=== PATIENT | male | born 1980 | race Caucasian/White ===

== ENCOUNTER 2016-08-13 17:42 | Inpatient (IN) | payer OTHER ==
[2016-08-13] MEDS ORDERED: TORADOL IV ONE (18:04)
[2016-08-13] MEDS ORDERED: NACL 0.9% 1000 ML 1,000 ML IV ONE (18:04)
[2016-08-13] MEDS ORDERED: ZOFRAN IV ONE (18:04)
[2016-08-13] MEDS ORDERED: DILAUDID IV ONE (18:16)
[2016-08-13 18:23] LABS: Basophils % (Auto) 0.5 % (0.0-1.8); Eosinophils % (Auto) 0.6 % (0.0-4.3); Hematocrit 44.1 % (35.5-45.6); Hemoglobin 14.9 gm/dl (11.8-15.2); Mean Corpuscular HGB Conc 34 % (32-34); Mean Corpuscular Hemoglobin 30 pg (28-32); Mean Corpuscular Volume 87 fl (84-94); Platelet Count 222 K/mm3 (140-440); Red Blood Count 5.07 M/mm3 (3.65-5.03); Red Cell Distribution Width 13.9 % (13.2-15.2); White Blood Count 8.2 K/mm3 (4.5-11.0)
[2016-08-13 18:37] LABS: Alanine Aminotransferase 41 units/L (7-56); Albumin 4.4 g/dL (3.9-5); Albumin/Globulin Ratio 1.5 %; Alkaline Phosphatase 80 units/L (35-129); Anion Gap 22 mmol/L; BUN/Creatinine Ratio 11.11; Blood Urea Nitrogen 10 mg/dL (9-20); Calcium 9.5 mg/dL (8.4-10.2); Carbon Dioxide 23 mmol/L (22-30); Chloride 98.8 mmol/L (98-107); Glucose 102 mg/dL (75-100); Lipase 23 units/L (13-60); Potassium 3.9 mmol/L (3.6-5.0); Sodium 140 mmol/L (137-145); Total Protein 7.4 g/dL (6.3-8.2)
[2016-08-13 18:46] LABS: Bilirubin,Urine NEG (Negative); Blood,Urine LG (Negative); Ketones,Urine NEG (Negative); Leukocyte Esterase,Urine NEG (Negative); Mucus,Urine 1+ /HPF; Nitrite,Urine NEG (Negative); Protein,Urine <15 mg/dL mg/dL (Negative); Urobilinogen,Urine < 2.0 mg/dL (<2.0)
--- NOTE | 2016-08-13 19:13 | Emergency Department Report ---
ED Abdominal Pain HPI - General Chief Complaint: Abdominal Pain Stated Complaint: ABD PAIN Time Seen by Provider: 08/13/16 18:10 Source: patient Mode of arrival: Ambulatory Limitations: No Limitations - History of Present Illness MD Complaint: flank pain (right side) -: Sudden Radiation: suprapubic Severity: severe Severity scale (0 -10): 9 Quality: stabbing, sharp Consistency: colicky Improves With: nothing Worsens With: nothing Associated Symptoms: nausea. denies: vomiting, diarrhea, fever, chills, constipation, dysuria, hematemesis, hematochezia, melena, hematuria, anorexia, syncope - Related Data Previous Rx's Medication Instructions Recorded Last Taken Type Ketorolac [Toradol] 10 mg PO BID #20 tablet 08/13/16 Unknown Rx Allergies Allergy/AdvReac Type Severity Reaction Status Date / Time No Known Allergies Allergy Unverified 08/13/16 17:50 ED Review of Systems ROS: Stated complaint: ABD PAIN Other details as noted in HPI Comment: All other systems reviewed and negative ED Past Medical Hx - Past Medical History Previous Medical History?: No - Surgical History Past Surgical History?: No - Social History Smoking Status: Never Smoker Substance Use Type: Alcohol, Non Opiate Pain - Medications Home Medications: Home Medications Medication Instructions Recorded Confirmed Last Taken Type Ketorolac [Toradol] 10 mg PO BID #20 tablet 08/13/16 Unknown Rx ED Physical Exam - General Limitations: No Limitations General appearance: alert, in no apparent distress - Head Head exam: Present: atraumatic, normocephalic - Eye Eye exam: Present: normal appearance - ENT ENT exam: Present: mucous membranes moist - Neck Neck exam: Present: normal inspection - Respiratory Respiratory exam: Present: normal lung sounds bilaterally. Absent: respiratory distress - Cardiovascular Cardiovascular Exam: Present: regular rate, normal rhythm. Absent: systolic murmur, diastolic murmur, rubs, gallop - GI/Abdominal GI/Abdominal exam: Present: soft, normal bowel sounds. Absent: distended, tenderness, guarding, rebound - Rectal Rectal exam: Present: deferred - Extremities Exam Extremities exam: Present: normal inspection - Back Exam Back exam: Present: normal inspection, CVA tenderness (R) - Neurological Exam Neurological exam: Present: alert, oriented X3 - Psychiatric Psychiatric exam: Present: normal affect, normal mood - Skin Skin exam: Present: warm, dry, intact, normal color. Absent: rash ED Course Vital Signs 08/13/16 08/13/16 08/13/16 17:50 18:19 18:22 Temperature 97.9 F Pulse Rate 81 Respiratory 22 22 22 Rate Blood Pressure 159/121 O2 Sat by Pulse 100 Oximetry 08/13/16 18:33 Temperature Pulse Rate Respiratory 22 Rate Blood Pressure O2 Sat by Pulse 100 Oximetry ED Medical Decision Making - Lab Data Result diagrams: 08/13/16 17:56 08/13/16 18:00 Critical care attestation.: If time is entered above; I have spent that time in minutes in the direct care of this critically ill patient, excluding procedure time. ED Disposition Clinical Impression: Kidney stone on right side Disposition: DISCHARGED TO HOME OR SELFCARE Is pt being admited?: No Does the pt Need Aspirin: No Condition: Good Instructions: Kidney Stones (ED), How to Strain Your Urine (ED), Renal Colic ( ED) Prescriptions: Ketorolac [Toradol] 10 mg PO BID #20 tablet Referrals: PRIMARY CARE, [Primary Care Provider] - 3-5 Days Time of Disposition: 19:13 Print Language: ESTONIAN
--- NOTE | 2016-08-13 19:54 | Cat Scan Report ---
FINAL REPORT PROCEDURE: CT ABDOMEN PELVIS WO CON TECHNIQUE: Computerized axial tomography of the abdomen and pelvis was performed without intravenous contrast. This study is performed without intravascular contrast material and its sensitivity for abdominal and pelvic pathology, including neoplasms, inflammation, abscess, free fluid, thrombosis, arterial dissection and infarction, is reduced compared with a contrast enhanced study. HISTORY: severe right lower quad abd. pain COMPARISON: No prior studies are available for comparison. FINDINGS: Lower Lung bojorquez: Small amount of dependent atelectasis visualized. Upper Abdomen: There is subtle decreased density seen along the right side of the falciform ligament which is a common area for focal fatty infiltration. The liver is otherwise unremarkable. The gallbladder, the adrenal glands, the pancreas and spleen are unremarkable. Kidneys, Ureters and Urinary bladder: There is mild right-sided hydronephrosis secondary to a calculus in the distal right ureter adjacent to the urinary bladder measuring 6.3 x 2.2 centimeter. No other ureteral calculi are seen on the right or left. No renal calculi are seen on the right or left. No renal masses are identified. Urinary bladder showed no focal abnormality. Retroperitoneum: Abdominal aorta appears normal. No aneurysm is visualized. Nonspecific subcentimeter lymph nodes are seen in the retroperitoneum. No pathologically enlarged lymph nodes are identified. Bowel: No abnormalities are seen. No evidence of bowel obstruction ascites or free intraperitoneal gas. Normal-appearing appendix is seen in the right lower quadrant. No acute bony abnormalities are identified. Other: None IMPRESSION: Mild right-sided hydronephrosis secondary to a calculus in the distal right ureter. No other renal or ureteral calculi are seen. Small area of focal fatty infiltrates are suspected along the right side of the falciform ligament.. No other abnormalities are seen.
[2016-08-13] MEDS ORDERED: ZOFRAN IV PRN (23:21)
[2016-08-13] MEDS ORDERED: RESTORIL PO PRN (23:22)
[2016-08-14] MEDS ORDERED: TYLENOL PO PRN ×2 (01:46→15:56)
--- NOTE | 2016-08-14 05:19 | History and Physical Report ---
CHIEF COMPLAINT: Right flank pain. HISTORY OF PRESENT ILLNESS: The patient is a 36-year-old male who started having right flank pain a day prior to presentation. The patient admitted to having nausea, but no vomiting. There was also no history of fever or chills and no history of shortness of breath or chest pain. The pain radiates from the right flank down the right inguinal area. There is no history of dysuria, hematuria or burning micturition or frequent urination. The patient presented to the Emergency Room. PAST MEDICAL HISTORY: Unremarkable. PAST SURGICAL HISTORY: Unremarkable. FAMILY HISTORY: Noncontributory. SOCIAL HISTORY: The patient does not smoke, drinks alcohol and does not use illicit drugs. MEDICATIONS: The patient is on Toradol by mouth 10 mg twice daily as needed for pain. ALLERGIES: There are no known drug allergies. REVIEW OF SYSTEMS: CONSTITUTIONAL: There is no fever, no chills, no diaphoresis. HEENT: There is no headache or sore throat. CARDIOVASCULAR: There is no chest pain or orthopnea. RESPIRATORY: There is no shortness of breath or cough. GASTROINTESTINAL: There is nausea, but no vomiting, no abdominal pain, diarrhea or constipation. NEUROLOGICAL: There is no numbness, no dizziness, no altered mental status. MUSCULOSKELETAL: There is no joint pain or swelling. DERMATOLOGICAL: There is no skin rash or itching. GENITOURINARY: Shows flank pain, but no dysuria or hematuria. Rest of system review is normal. PHYSICAL EXAMINATION: GENERAL: At the time of exam, the patient was found to be alert, oriented x 3 and in mild distress due to pain in the right flank. VITAL SIGNS: Temperature was 97.9, pulse of 69, respirations 18, blood pressure 129/84, O2 sat of 100% on room air. HEENT: Showed pupils to be equal, round, reactive to light and accommodating. Extraocular muscles are intact. NECK: Supple with no JVD or carotid bruit. CARDIOVASCULAR : Show first and second heart sounds with no gallops or murmur. RESPIRATORY: Showed good air entry on both sides of the lung with no abnormal breath sounds. GASTROINTESTINAL: Showed abdomen to be full, soft, nontender with no organomegaly or rigidity. NEUROLOGIC: Showed no focal deficit. MUSCULOSKELETAL: Showed no joint swelling or tenderness. DERMATOLOGICAL SYSTEM: Showed no skin rash. GENITOURINARY: Showing right costovertebral angle tenderness. PERTINENT LAB AND IMAGING STUDIES: The patient had a CT of the abdomen and pelvis done that shows mild right-sided hydronephrosis believed to be secondary to a calculus in the distal right ureter adjacent to the urinary bladder measuring 6.3 x 2.2 mm and in the retroperitoneum abdominal aorta appears normal. No aneurysm is visualized, but there is finding of nonspecific subcentimeter lymph nodes. No pathologically enlarged lymph nodes were identified. DIAGNOSIS: Right ureteral calculus. PLAN: The patient will be admitted to medical floor. He will be on IV normal saline at 150 mL an hour. The patient will be on IV Dilaudid 1 mg every 4 hours as needed for pain and will be on IV Zofran 4 mg every 6 hours for nausea and vomiting and temazepam 15 mg at bedtime. Lab tests shows urine with elevated urine WBC, negative leukocytes and negative nitrites. The patient's chemistry was unremarkable with CBC unremarkable as well. The patient will also be on IV Levaquin 750 mg daily and will have Urology consult with Dr. Alexander today, 08/14/2016. The patient's home medications will be reconciled and started accordingly. The patient will also be on Tylenol 650 mg by mouth every 4 hours for fever and headache. JOB# [id number] [facility] MARTHAD
--- NOTE | 2016-08-14 06:58 | Admit Criteria Form ---
Admission Criteria Documentation: ABDOMINAL PAIN Clinical Indications for Admission to Inpatient Care (Place 'X' for any and all applicable criteria): Admission is indicated for ANY ONE of the following(1)(2)(3)(4)(5): [X ]I. Inpatient admission required rather than observation care (Also use Abdominal Pain: Observation Care, as appropriate) because of ANY ONE of the following: [ ]a) Severe pain requiring acute inpatient management [ X]b) Identification of etiology/finding that requires inpatient care (eg, aortic dissection, free air) [ ]c) Absent bowel sounds with complete ileus(6) [ ]d) Suspected toxic megacolon [ ]e) Severe electrolyte abnormalities requiring inpatient care [ ]f) High fever or infection requiring inpatient admission as indicated by ANY ONE of following(7)(8): [ ] i) Appropriate outpatient or observational care antimicrobial treatment unavailable, not effective, or not feasible [ ] ii) Documented bacteremia [ ] iii) Temperature > 104.9 degrees F (oral) [ ] iv) T >103.1 F (oral) or < 96.8 F(rectal) that does not respond to all emergency treatment measures [ ]g) Signs of intestinal obstruction [B] [ ]h) Hemodynamic instability [ ]i) IV fluid to replace significant ongoing losses (greater than 3 L/m2 per day) (12)(13) [ ]j) Percutaneous or open drainage (eg, abscess, biliary tract ) procedures [ ]k) Parenteral nutrition regimen that must be implemented on inpatient basis [ ]l) Other condition,treatment or monitoring requiring inpatient admission. [ ]II. Peritoneal signs present [ ]III. Surgery needed that cannot be performed on an ambulatory basis. [ ]IV. Evaluation requires patient to not eat or drink for extended period ( eg, more than 24 hours). [ ]V. Contraindications and/or Inappropriate clinical situations for Observational Care in patients with abdominal pain, when ANY ONE of the following is required: [ ]a) Thorough evaluation is required to prevent catastrophic events due to delays in diagnosing (e.g.Mesenteric ischemia) 1,3 [ ]b) Patient with severe pathology or with chronic symptoms unlikely to improve in the ED stay (3) [ ]. General contraindications and/or Inappropriate clinical situations for Observational Care in patients with abdominal pain, when ANY ONE of the following is required: [ ]a) Prediction of prolongation of LOS based on ANY ONE of the following may be considered as a contraindication for observational care 2, 3, 4, 5, 6, 7, 8, 9, 10, 11 [ ]i) Age > 65 yrs. [ ]ii) Patient arriving by ambulance [ ]iii) Patient with high acuity [ ]iv) Patient requiring vital sign monitoring [ ]v) Patient on IV medication [ ]b) Systolic blood pressures 180mmHg 3,12 [ ]c) Patient with altered mental status including delirium and other alteration of consciousness, (3) [ ]d) Patient whose discharge disposition will be to a care home home or rehabilitation home should not be managed in Emergency Department Observation Unit. CMS rule requires 3 days hospital stay before such placement.3,13 [ ]e) Patient with failure to thrive due to broad array of etiologies 3,16,17 [ ]f) Inability to ambulate 3,14 Extended stay beyond goal length of stay may be needed for(2)(3): [ ]a) Persistent abdominal pain with suspected intra-abdominal process [ ]b) Diagnosed condition requiring continued stay (e.g., pancreatitis, complicated diverticulitis) [ ]c) Surgery (e.g., colectomy) The original [facility] content created by [employer] has been revised. The portions of the content which have been revised are identified through the use of italic text or in bold, and [facility] has neither reviewed nor approved the modified material.All other unmodified content is copyright [facility] Please see references footnoted in the original [facility] edition 2016 Admission Criteria Met: Yes
--- NOTE | 2016-08-14 07:55 | Progress Note ---
Assessment and Plan Assessment and plan: --Right ureteric stone IV fluids, pain medications, urology consultation Discussed the case with Dr. Alexander and requested a consult --Obstructive uropathy/hydronephrosis Secondary to ureteric stone, possible urologic intervention, empiric antibiotics --DVT prophylaxis with Lovenox Closely monitor the patient and adjust management as needed Follow Gu evaluation recommendations Disposition; possible discharge in 1-2 days if stable History Interval history: Patient seen and evaluated medical records reviewed Admitted with flank pain, large ureteric stone with hydronephrosis Complaints of intermittent flank pain Denies any nausea vomiting Alert awake oriented 3 not in acute distress Vital signs reviewed stable Hospitalist Physical - Constitutional Vitals: Temp Pulse Resp BP Pulse Ox 97.9 F 58 L 16 121/80 97 08/14/16 00:00 08/14/16 00:00 08/14/16 00:00 08/14/16 00:00 08/14/16 00:00 General appearance: Present: no acute distress, well-nourished - EENT Eyes: Present: PERRL, EOM intact - Neck Neck: Present: supple, normal ROM - Respiratory Respiratory effort: normal Respiratory: negative: rales, rhonchi, wheezing - Cardiovascular Rhythm: regular Heart Sounds: Present: S1 & S2 - Extremities Extremities: no ischemia, pulses intact, pulses symmetrical Peripheral Pulses: within normal limits - Abdominal General gastrointestinal: soft, non-tender, non-distended, normal bowel sounds - Integumentary Integumentary: Present: clear, warm - Psychiatric Psychiatric: appropriate mood/affect, cooperative - Neurologic Neurologic: CNII-XII intact, moves all extremities Results - Labs CBC & Chem 7: 08/13/16 17:56 08/13/16 18:00 Labs: Laboratory Last Values WBC 8.2 K/mm3 (4.5-11.0) 08/13/16 17:56 RBC 5.07 M/mm3 (3.65-5.03) H 08/13/16 17:56 Hgb 14.9 gm/dl (11.8-15.2) 08/13/16 17:56 Hct 44.1 % (35.5-45.6) 08/13/16 17:56 MCV 87 fl (84-94) 08/13/16 17:56 MCH 30 pg (28-32) 08/13/16 17:56 MCHC 34 % (32-34) 08/13/16 17:56 RDW 13.9 % (13.2-15.2) 08/13/16 17:56 Plt Count 222 K/mm3 (140-440) 08/13/16 17:56 Lymph % (Auto) 29.8 % (13.4-35.0) 08/13/16 17:56 [place] % (Auto) 6.4 % (0.0-7.3) 08/13/16 17:56 Eos % (Auto) 0.6 % (0.0-4.3) 08/13/16 17:56 Baso % (Auto) 0.5 % (0.0-1.8) 08/13/16 17:56 Lymph # 2.5 K/mm3 (1.2-5.4) 08/13/16 17:56 [place] # 0.5 K/mm3 (0.0-0.8) 08/13/16 17:56 Eos # 0.1 K/mm3 (0.0-0.4) 08/13/16 17:56 Baso # 0.0 K/mm3 (0.0-0.1) 08/13/16 17:56 Seg Neutrophils % 62.7 % (40.0-70.0) 08/13/16 17:56 Seg Neutrophils # 5.1 K/mm3 (1.8-7.7) 08/13/16 17:56 Sodium 140 mmol/L (137-145) 08/13/16 18:00 Potassium 3.9 mmol/L (3.6-5.0) 08/13/16 18:00 Chloride 98.8 mmol/L (98-107) 08/13/16 18:00 Carbon Dioxide 23 mmol/L (22-30) 08/13/16 18:00 Anion Gap 22 mmol/L 08/13/16 18:00 BUN 10 mg/dL (9-20) 08/13/16 18:00 Creatinine 0.9 mg/dL (0.8-1.5) 08/13/16 18:00 Estimated GFR > 60 ml/min 08/13/16 18:00 BUN/Creatinine Ratio 11.11 % 08/13/16 18:00 Glucose 102 mg/dL (75-100) H 08/13/16 18:00 Calcium 9.5 mg/dL (8.4-10.2) 08/13/16 18:00 Total Bilirubin 0.30 mg/dL (0.1-1.2) 08/13/16 18:00 AST 25 units/L (5-40) 08/13/16 18:00 ALT 41 units/L (7-56) 08/13/16 18:00 Alkaline Phosphatase 80 units/L (35-129) 08/13/16 18:00 Total Protein 7.4 g/dL (6.3-8.2) 08/13/16 18:00 Albumin 4.4 g/dL (3.9-5) 08/13/16 18:00 Albumin/Globulin Ratio 1.5 % 08/13/16 18:00 Lipase 23 units/L (13-60) 08/13/16 18:00 Urine Color Yellow (Yellow) 08/13/16 18:08 Urine Turbidity Clear (Clear) 08/13/16 18:08 Urine pH 6.0 (5.0-7.0) 08/13/16 18:08 Ur Specific Bureau 1.017 (1.003-1.030) 08/13/16 18:08 Urine Protein <15 mg/dl mg/dL (Negative) 08/13/16 18:08 Urine Glucose (UA) Neg mg/dL (Negative) 08/13/16 18:08 Urine Ketones Neg mg/dL (Negative) 08/13/16 18:08 Urine Blood Lg (Negative) 08/13/16 18:08 Urine Nitrite Neg (Negative) 08/13/16 18:08 Urine Bilirubin Neg (Negative) 08/13/16 18:08 Urine Urobilinogen < 2.0 mg/dL (<2.0) 08/13/16 18:08 Ur Leukocyte Esterase Neg (Negative) 08/13/16 18:08 Urine WBC (Auto) 9.0 /HPF (0.0-6.0) H 08/13/16 18:08 Urine RBC (Auto) 61.0 /HPF (0.0-6.0) 08/13/16 18:08 Urine Mucus 1+ /HPF 08/13/16 18:08
--- NOTE | 2016-08-14 09:21 | Consultation ---
History of Present Illness - Reason for Consult Consult date: 08/14/16 - History of Present Illness rt flank pain ct rt hydro with stone Medications and Allergies Allergies Allergy/AdvReac Type Severity Reaction Status Date / Time No Known Allergies Allergy Verified 08/13/16 23:24 Home Medications Medication Instructions Recorded Confirmed Last Taken Type Acetaminophen [Acetaminophen TAB] 325 mg PO PRN PRN 08/13/16 08/13/16 Unknown History Ketorolac [Toradol] 10 mg PO BID #20 tablet 08/13/16 Unknown Rx Active Meds: Active Medications Acetaminophen (Tylenol) 650 mg PO Q4H PRN PRN Reason: For Pain/Fever/Headache Heparin Sodium (Porcine) (Heparin) 5,000 unit SUB-Q Q12HR ANJU Hydromorphone HCl (Dilaudid) 1 mg IV Q4H PRN PRN Reason: Pain , Severe (7-10) Sodium Chloride (Nacl 0.9% 1000 Ml) 1,000 mls @ 150 mls/hr IV DIRECT ANJU Levofloxacin/Dextrose (Levaquin 750mg/150ml) 750 mg in 150 mls @ 100 mls/hr IV Q24HR ANJU PRN Reason: Protocol Ondansetron HCl (Zofran) 4 mg IV Q6H PRN PRN Reason: Nausea And Vomiting Temazepam (Restoril) 15 mg PO QHS PRN PRN Reason: Insomnia Exam - Constitutional Vitals: Temp Pulse Resp BP Pulse Ox 98.2 F 60 16 120/76 98 08/14/16 08:00 08/14/16 08:00 08/14/16 08:00 08/14/16 08:00 08/14/16 08:00 Results - Labs CBC & Chem 7: 08/13/16 17:56 08/13/16 18:00
[2016-08-14] MEDS: LEVAQUIN 750MG/150ML 750 MG/150 ML BAG IV SCH (10:06)
--- NOTE | 2016-08-14 12:57 | Anesthesia Consultation ---
Anesthesia Consult and Med Hx Date of service: 08/14/16 - Airway Anesthetic Teeth Evaluation: Good ROM Head & Neck: Adequate Mental/Hyoid Distance: Adequate Mallampati Class: Class I Intubation Access Assessment: Probably Good - Pulmonary Exam CTA: Yes - Pre-Operative Health Status ASA Pre-Surgery Classification: ASA2 Proposed Anesthetic Plan: General (denies nausea and vomiting) - Pulmonary Hx Asthma: No COPD: No Hx Pneumonia: No - Endocrine Hx End Stage Renal Disease: No
--- NOTE | 2016-08-14 12:57 | Anesthesia Day of Surgery ---
Anesthesia Day of Surgery - Day of Surgery Patient Examined: Yes Patient H&P Reviewed: Yes Patient is NPO: Yes
[2016-08-14] MEDS ORDERED: SUBLIMAZE IV PRN (12:58)
[2016-08-14] MEDS ORDERED: DILAUDID IV PRN (12:58)
[2016-08-14] MEDS ORDERED: VERSED IV NR (13:00)
[2016-08-14] MEDS ORDERED: PEPCID PO NR (13:00)
[2016-08-14] MEDS ORDERED: NACL 0.9% 1000 ML 1,000 ML ONE ×2 (13:01→14:36)
[2016-08-14] MEDS: NACL 0.9% 1000 ML 1,000 ML IV SCH ×2 (13:10→18:39)
[2016-08-14] MEDS ORDERED: SUBLIMAZE ONE (13:48)
[2016-08-14] MEDS ORDERED: DIPRIVAN 10 MG/ML IV ONE (13:48)
[2016-08-14] MEDS ORDERED: ZOFRAN ONE (14:30)
[2016-08-14] MEDS ORDERED: XYLOCAINE MPF 2% ONE (14:30)
[2016-08-14] MEDS ORDERED: DECADRON ONE (14:30)
--- NOTE | 2016-08-14 14:41 | Post Operative Note ---
Pre-op diagnosis: rt distal ureteral stone Post-op diagnosis: same Procedure: cysto, rpg, basket stone extraction, jj stent with external string Anesthesia: VINNY Surgeon: GUERITA ISAAC Estimated blood loss: none Pathology: none Condition: stable Disposition: PACU (give stone to elvia aquino norco, post op info on chart, appt 1 -2 weeks-call office)
[2016-08-14] MEDS ORDERED: WATER FOR IRRIG STERILE IR ONE (14:43)
[2016-08-14] MEDS ORDERED: OMNIPAQUE (300 MG) IR ONE (14:43)
[2016-08-14] MEDS: HEPARIN SUB-Q SCH ×2 (15:57→22:11)
[2016-08-14] MEDS: DILAUDID IV PRN (16:30)
--- NOTE | 2016-08-14 18:57 | Post Anesthesia Evaluation ---
- Post Anesthesia Evaluation Patient Participated: Yes Airway Patent: Yes Stable Respiratory Function: Yes Nausea/Vomiting: No Temp > 96.8F: Yes Pain Manageable: Yes Adequeate Hydration: Yes Anesthesia Complications: No Block Receding Appropriately: Not Applicable Patient on Ventilator: No
--- NOTE | 2016-08-15 01:31 | Consultation ---
REASON FOR CONSULTATION: Right ureteral stone. REFERRING PHYSICIAN: Chrystal Waldron MD. HISTORY OF PRESENT ILLNESS: This patient is a 36-year-old gentleman who presented to the Emergency Room with right flank pain. CT of abdomen and pelvis revealed a 5 mm mid ureteral stone with hydro. The patient denies any previous stones. ALLERGIES: He has no known drug allergies. PAST MEDICAL HISTORY: Unremarkable. PAST SURGICAL HISTORY: Unremarkable. SOCIAL HISTORY: He does admit to alcohol use. PHYSICAL EXAMINATION: GENERAL: He is alert and oriented. VITAL SIGNS: Temperature 97.9, respiration ____, pulse 81, BP 120/76. LABORATORY DATA: BUN and creatinine of 10 and 0.9 respectively. Hemoglobin and hematocrit 14 and 44 respectively. White count 8000, platelets 222,000. ASSESSMENT: Right ureteral stone with 6 mm. Discussed options. The patient is n.p.o. Recommend cystoscopy, ureteroscopy. JOB# [id number] [facility]/DANIELLE
--- NOTE | 2016-08-15 06:17 | Operative Report ---
PREOPERATIVE DIAGNOSIS: Right distal ureteral stone, 4 mm. POSTOPERATIVE DIAGNOSIS: Right distal ureteral stone, 4 mm. PROCEDURE: Cystoscopy, bilateral retrograde pyelograms, right ureteroscopy, basket stone extraction, double-J stent placement (6 Armenian 26 cm with an external string). SURGEON: Kalpesh Alexander MD ANESTHESIA: General. ESTIMATED BLOOD LOSS: Minimal. FLUIDS: Crystalloid. COMPLICATIONS: No complications. INDICATIONS: This patient is a 36-year-old gentleman presented to the Emergency Room with right flank pain. CT of abdomen and pelvis revealed a right 4-mm ureteral stone. He was admitted to the hospitalist service. Consult from Dr. Waldron was obtained. Discussed options with the patient and he agreed to proceed with surgical intervention. DESCRIPTION OF PROCEDURE: The patient was taken to the operative suite, placed in a supine position. After adequate general anesthesia, he was placed in a dorsal lithotomy position and prepped and draped in a sterile fashion. Pancystourethroscopy was performed with a 22-Armenian Storz cystoscope. No urethral abnormalities. His prostate was nonobstructing. Bilateral retrograde pyelograms were obtained with an 8-Armenian Sandoval catheter and 8 mL of contrast. No filling defects or obstruction on the left. Right side had obvious stone in the distal ureter. Two 0.035 Glidewires were placed. Rigid ureteroscopy was performed. The stone was visualized. It was engaged with a 3-Armenian Carol basket and extracted without difficulty. A 6-Armenian 26 cm double-J stent with an external string was left indwelling. This was confirmed under fluoroscopy. Rectal exam was benign. He was extubated and taken to the recovery room in stable condition. We will give him the stone. He will go home with Heidi Mar and postoperative instructions. JOB# [id number] [facility]
[2016-08-15] MEDS: NACL 0.9% 1000 ML 1,000 ML IV SCH (06:56)
--- NOTE | 2016-08-15 08:13 | Discharge Summary ---
Providers - Providers Date of Admission: 08/13/16 23:17 Date of discharge: 08/15/16 Attending physician: DEVORAH BEJARANO 08/14/16 06:18 Consult to Physician [CONS] Routine Consulting Provider: GUERITA ISAAC Reason For Exam: RIGHT URETERAL STONE Place consult to:: GUERITA ISAAC Notified:: yes Comment:: ERMA MEEK STATES THAT DR BEJARANO ALREADY SPOKE TO DR ISAAC Primary care physician: [employer] Hospitalization Reason for admission: right flank pain Condition: Good Pertinent studies: CT abdomen and pelvis; mild right-sided hydronephrosis secondary to calculus in the distal ureter, measuring 6.32.2 cm Hospital course: Very pleasant 36-year-old male patient with no significant past medical history was admitted with right flank pain, CT abdomen and pelvis revealed right ureteric stone with right hydronephrosis Admitted to the hospital symptomatically managed evaluated by urologist, underwent urologic procedures as mentioned above, patient was closely monitored overnight Today she is comfortable in bed alert awake oriented 3 not in acute distress Vital signs are stable [id number] evaluation physical examination done by mt prior to discharge is unremarkable Clear by urology, patient is being discharged on oral antibiotics and pain medications advised to follow with urologist in 1 week for further evaluation and management as needed Patient strongly advised to comply with medications Final diagnosis; Right flank pain Right ureteric stone Right hydronephrosis Status post extraction of stone and JJ stent placement Disposition: DISCHARGED TO HOME OR SELFCARE Time spent for discharge: 31 min Core Measure Documentation - Palliative Care Palliative Care/ Comfort Measures: Not Applicable - Core Measures Any of the following diagnoses?: none Exam - Constitutional Vitals: Temp Pulse Resp BP Pulse Ox 98.2 F 71 16 141/84 97 08/14/16 22:00 08/14/16 22:00 08/14/16 22:00 08/14/16 22:00 08/15/16 08:02 General appearance: Present: no acute distress, well-nourished - EENT Eyes: Present: PERRL, EOM intact - Neck Neck: Present: supple, normal ROM - Respiratory Respiratory effort: normal Respiratory: negative: rales, rhonchi, wheezing - Cardiovascular Rhythm: regular Heart Sounds: Present: S1 & S2 - Extremities Extremities: no ischemia, pulses intact, pulses symmetrical Peripheral Pulses: within normal limits - Abdominal General gastrointestinal: Present: soft, non-tender, non-distended, normal bowel sounds - Integumentary Integumentary: Present: clear, warm - Musculoskeletal Musculoskeletal: strength equal bilaterally - Psychiatric Psychiatric: appropriate mood/affect, cooperative - Neurologic Neurologic: CNII-XII intact, moves all extremities Plan Activity: no restrictions Diet: regular Follow up with: PRIMARY CARE, [Primary Care Provider] - 3-5 Days GUERITA ISAAC MD [Staff Physician] - 7 Days Prescriptions: Ciprofloxacin HCl [Ciprofloxacin TAB] 500 mg PO Q12H #20 tab Ketorolac [Toradol] 10 mg PO BID #20 tablet oxyCODONE /ACETAMINOPHEN [Percocet 5/325] 1 tab PO Q8H PRN #15 tablet PRN Reason: Pain
[2016-08-15] MEDS: HEPARIN SUB-Q SCH (09:23)
[2016-08-15] MEDS: LEVAQUIN 750MG/150ML 750 MG/150 ML BAG IV SCH (09:23)
[2016-08-15 09:31] VITALS: BP 136/90
--- NOTE | 2016-08-15 10:15 | Fluoroscopy Report ---
RETROGRADE PYELOGRAM: History: Right ureteral stone. Findings: Fluoroscopy was provided by radiology during retrograde urography by urology. Recent noncontrast CT abdomen and pelvis on 08/13/16 demonstrates a stone in the distal right ureter. 8 fluoroscopic images were captured. The left pyelogram is normal. No right pyelogram images were saved but multiple images demonstrate placement of a right ureteral stent which is in good position on the final image. Operative notes mention right ureteroscopy and extraction of the right ureteral stone was performed. Please correlate with procedural report.
[2016-08-15] MEDS: DILAUDID IV PRN (13:38)
== END 2016-08-15 16:00 | disposition home or self-care (01) | DRG 669 ==
LOC: ED 17:42 → 3A 23:17
PROVIDERS: ADMIT Internal Medicine; ATTEND Internal Medicine
PROC: 0TC68ZZ Extirpation of Matter from Right Ureter, Via Natural or Artificial Opening Endoscopic (ICD-10-PCS; principal; 2016-08-14)
PROC: 0T768DZ Dilation of Right Ureter with Intraluminal Device, Via Natural or Artificial Opening Endoscopic (ICD-10-PCS; 2016-08-14)
DX: N20.1 Calculus of ureter (principal); N13.30 Unspecified hydronephrosis; N13.9 Obstructive and reflux uropathy, unspecified
CPT/HCPCS: 36415; 74176; 74420; 80053; 81001; 83690; 85025; 96374; 96375; A4217; C1726; C1758; C1769; C2617; J1100; J1170; J1644; J1885; J1956; J2250; J2405; J2704; J3010; J7030; Q9967